=== PATIENT | female | born 1995 | race Caucasian/White ===

== ENCOUNTER 2018-08-10 08:06 | Outpatient (REF) | payer MEDICAID, SELFPAY ==
[2018-08-10 13:52] LABS: ALT 27 U/L (12-78); AST 28 U/L (15-37); Albumin 3.8 g/dL (3.4-5.0); Alkaline Phosphatase 69 U/L (46-116); Anion Gap 12.9 mmol/L (3-11); BUN 10 mg/dL (7-18); Bilirubin, Total 0.3 mg/dL (0.2-1.0); CO2 21.1 mmol/L (21.0-32.0); CREATININE 0.66 mg/dL (0.55-1.02); Calcium 8.9 mg/dL (8.5-10.1); Calculated LDL 100; Chloride 107 mmol/L (98-107); Cholesterol 169 mg/dL (50-200); Glucose 86 mg/dL (70-100); HDL Cholesterol 49 mg/dL (40-60); Potassium 4.4 mmol/L (3.5-5.1); Sodium 141 mmol/L (136-145); TSH (W/Ref FT4) 2.54 uIU/mL (0.358-3.74); Total Protein 7.3 g/dL (6.4-8.2); Triglyceride 101 mg/dL (30-150)
== END 2018-08-10 08:26 ==
LOC: NCHCN 08:06
PROVIDERS: PCP Family Medicine; Visit Provider Nurse Practitioner
DX: Z13.1 Encounter for screening for diabetes mellitus (principal); Z13.29 Encounter for screening for other suspected endocrine disorder; Z68.41 Body mass index [BMI] 40.0-44.9, adult; Z13.220 Encounter for screening for lipoid disorders
CPT/HCPCS: 80053; 80061; 83721; 84443

== ENCOUNTER 2021-11-16 14:11 | Outpatient (CLI) | payer MEDICAID, SELFPAY ==
[2021-11-16 14:16] LABS: HCT 38.2 % (36.0-46.0); HGB 11.7 g/dL (11.2-15.7); MCH 23.4 pg (27.0-33.0); MCHC 30.6 % (32.0-36.0); MCV 76 fL (80-95); MPV 10.3 fL (8.0-11.0); Platelet Count 294 10^3/uL (130-400); RBC 5.01 10^6/uL (3.93-5.22); RDW 15.5 % (11.7-14.6); RDW-SD 42.8 fL; WBC 6.86 10^3/uL (4.4-10.8)
[2021-11-16 14:37] LABS: Hemoglobin A1C 5.7 % (<5.7)
[2021-11-16 16:19] LABS: ALT 38 U/L (14-59); AST 24 U/L (15-37); Albumin 3.8 g/dL (3.4-5.0); Alkaline Phosphatase 70 U/L (46-116); Anion Gap 8.6 mmol/L (3-11); BUN 11 mg/dL (7-18); Bilirubin, Total 0.3 mg/dL (0.2-1.0); CO2 26.4 mmol/L (21.0-32.0); CREATININE 0.8 mg/dL (0.55-1.02); Calcium 8.9 mg/dL (8.5-10.1); Chloride 104 mmol/L (98-107); FREE T4 1.02 ng/dL (0.76-1.46); Glucose 91 mg/dL (74-106); Potassium 3.8 mmol/L (3.5-5.1); Sodium 139 mmol/L (136-145); TSH 1.55 uIU/mL (0.36-3.74)
[2021-11-16 17:07] LABS: Ferritin 12 ng/mL (8-252)
[2021-11-16 22:11] LABS: T3,Free 3.5 pg/mL (2.8-5.3)
[2021-11-16 23:04] LABS: Thyroglobulin Antibody <15 U/mL (<=60); Thyroperoxidase Antibody <28 U/mL (<=60)
[2021-11-18 05:48] LABS: Vitamin D 25 Total 15.9 ng/mL (30-100)
== END 2021-11-16 14:12 | disposition home or self-care (01) ==
LOC: LBO 14:13
PROVIDERS: PCP Family Medicine; Visit Provider Naturopath
DX: R53.83 Other fatigue (principal); F32.9 Major depressive disorder, single episode, unspecified; E66.8 Other obesity; E55.9 Vitamin D deficiency, unspecified; R71.8 Other abnormality of red blood cells
CPT/HCPCS: 36415; 80053; 82306; 85027; 82728; 83036; 84439; 84443; 84478; 84481; 86376; 86800

== ENCOUNTER 2022-01-10 15:12 | Outpatient (REF) | payer MEDICAID, SELFPAY | END 2022-01-10 15:13 | disposition home or self-care (01) | LOC: NCHCN 15:12 | PROVIDERS: PCP Family Medicine; Visit Provider Physician Assistant | DX: R30.0 Dysuria (principal); R82.998 Other abnormal findings in urine | CPT/HCPCS: 87086 ==